=== PATIENT | female | born 1995 | race Hispanic/Latino ===

== ENCOUNTER 2018-12-14 18:00 | Inpatient (IN) ==
[2018-12-14] MEDS ORDERED: REGLAN PO ONE (18:25)
[2018-12-14] MEDS ORDERED: STADOL IV PRN (18:25)
[2018-12-14] MEDS ORDERED: PEPCID IV PRN (18:25)
[2018-12-14] MEDS ORDERED: ZOFRAN IV PRN (18:25)
[2018-12-14] MEDS ORDERED: PEPCID PO PRN (18:25)
[2018-12-14] MEDS ORDERED: TYLENOL PO PRN (18:25)
[2018-12-14] MEDS ORDERED: KEFZOL 1 GM/D5W 1 GM/50 ML IVPB IV PRN (18:25)
[2018-12-14] MEDS ORDERED: PEPCID PO ONE (18:25)
[2018-12-14] MEDS ORDERED: AMPICILLIN 2 GM/NS 2 GM/100 ML IVPB IV ONE (18:25)
[2018-12-14] MEDS ORDERED: SODIUM CHLORIDE 0.9% INJ SCH (18:30)
[2018-12-14] MEDS ORDERED: PITOCIN 30 UNITS/NS 30 UNIT/500 ML IV.SOLN IV SCH ×2 (18:30→20:00)
[2018-12-14] MEDS ORDERED: LR 1,000 ML IV SCH (18:30)
[2018-12-14 19:29] LABS: URINE SOURCE VOIDED
[2018-12-14 19:38] LABS: BILIRUBIN URINE NEGATIVE (NEGATIVE); GLUCOSE URINE NEGATIVE (NEGATIVE); KETONE URINE TRACE mg/dL (NEGATIVE)
[2018-12-14 19:39] LABS: BLOOD URINE NEGATIVE (NEGATIVE); CLARITY SL. CLOUDY (CLEAR); COLOR YELLOW; LEUKOCYTES URINE TRACE (NEGATIVE); NITRITE URINE NEGATIVE (NEGATIVE); PROTEIN URINE NEGATIVE (NEGATIVE); SP GRAVITY URINE 1.015; UROBILINOGEN URINE 1 mg/dL
[2018-12-14 19:51] LABS: BASO# 0.02 X1000 (0.0-0.2); BASO% 0.3 % (0.0-0.8); EOS# 0.09 X1000 (0.0-0.7); EOS% 1.2 % (0.0-10.0); HEMATOCRIT 35.3 % (37.0-47.0); HEMOGLOBIN 12.1 g/dL (12.0-16.0); IMM GRAN# 0.02 X1000 (0.0-0.04); IMM GRAN% 0.3 % (0.0-0.5); LYMPH# 1.42 X1000 (1.2-3.4); LYMPH% 18.9 % (20.5-51.1); MCH 29.4 PG (27-31); MCHC 34.3 g/dL (33-37); MCV 85.7 FL (81-99); MONO# 0.46 X1000 (0.11-0.59); MONO% 6.1 % (1.7-9.3); NEUT# 5.52 X1000 (1.4-6.5); NEUT% 73.2 % (42.2-75.2); PLT 287 X1000 (130-400); RBC 4.12 XMIL (4.2-5.4); RDW 12.7 % (11.5-14.5); WBC 7.53 X1000 (4.8-10.8)
[2018-12-14] MEDS ORDERED: M-M-R II VACCINE SUBQ ONE (19:55)
[2018-12-14] MEDS ORDERED: BENADRYL PO PRN (19:55)
[2018-12-14] MEDS ORDERED: ATARAX PO PRN (19:55)
[2018-12-14] MEDS ORDERED: PITOCIN IM PRN (19:55)
[2018-12-14] MEDS ORDERED: XYLOCAINE-MPF 1% INJ PRN (19:55)
[2018-12-14] MEDS ORDERED: HYDROXYZINE IM PRN (19:55)
[2018-12-14] MEDS ORDERED: BENADRYL IV PRN (19:55)
[2018-12-14] MEDS ORDERED: MINERAL OIL PO PRN (19:55)
[2018-12-14] MEDS ORDERED: PERI MEDS (DERMOPLAST/NUPERCAINAL/TUCKS) MISC PRN (19:55)
[2018-12-14] MEDS ORDERED: BOOSTRIX VACCINE IM ONE (19:55)
[2018-12-14] MEDS ORDERED: CYTOTEC PO PRN (19:55)
[2018-12-14] MEDS ORDERED: AMBIEN PO PRN (19:55)
[2018-12-14] MEDS ORDERED: PITOCIN 20 UNITS/NS 20 UNITS/1,000 ML IV.SOLN IV SCH (20:00)
[2018-12-14 20:29] LABS: RAPID HIV PRESUMPTIVE NEGATIVE; RPR NON-REACTIVE (NONREACTIVE)
[2018-12-14] MEDS ORDERED: PERICOLACE PO SCH (21:00)
[2018-12-14] MEDS ORDERED: AMPICILLIN 1 GM/NS 1 GM/50 ML IVPB IV SCH (22:30)
[2018-12-15] MEDS: MOTRIN PO PRN ×2 (00:36→11:45)
--- NOTE | 2018-12-15 02:20 | HISTORY AND PHYSICAL ---
HISTORY OF PRESENT ILLNESS: The patient is a 23-year-old G3, P2-0-0-2 who presents with no care at a gestational age of 36 weeks, based off of the last menstrual. The patient presents in active labor. Reports good movement, positive contractions. No leakage of fluid and denies vaginal bleeding. PAST MEDICAL HISTORY: None. PAST SURGICAL HISTORY: None. PAST OB HISTORY: G3, P2-0-0-2, two full-term vaginal deliveries. COMPANY LAB[employer] HISTORY: Menarche at age 12. She reports regular menstrual cycles. FAMILY HISTORY: None. SOCIAL HISTORY: Denies tobacco, alcohol, or drug use. MEDICATIONS: vitamins. ALLERGIES: No known drug allergies. REVIEW OF SYSTEMS: All systems reviewed and noncontributory. PHYSICAL EXAM: VITAL SIGNS: Stable and normal. HEENT: Pupils equal, round, reactive to light and accommodation. Extraocular movements intact. NECK: Supple. No thyromegaly. LUNGS: Clear to auscultation. HEART: Regular rate and rhythm. ABDOMEN: Gravid. Fundal height measuring roughly 37 cm. GENITOURINARY: Vaginal exam, 5 cm dilated, 100% effaced, -1 station. EXTREMITIES: Mild lower extremity edema. Negative calf tenderness. Electronic monitor: Category 1 tracing. TOCO monitore: contractions q.3 to 5 minutes. ASSESSMENT: The patient is a 23-year-old female, G3, P2-0-0-2 at approximately 36 weeks gestation, who presents with no care in active labor. PLAN: 1. Admit to Labor and delivery. 2. Estimated weight 6-1/2 pounds. 3. Anticipate vaginal delivery. 4. Obtain no care labs and routine labor labs. 5. Plan for ampicillin antibiotic for GBS unknown status. [facility]
--- NOTE | 2018-12-15 05:13 | OB/GYN PROGRESS NOTE ---
Progress Note OB - . Patient Problems: Current Active Problems Problem Status Onset Vaginal delivery Acute OB Progress Note: Vital Signs - 24 hr 12/15/18 00:30 12/15/18 04:27 Temperature 97.9 F 96.4 F L Pulse Rate 58 L 64 Respiratory Rate 18 18 Blood Pressure 91/53 92/50 O2 Sat by Pulse Oximetry 97 95 Laboratory Results - last 24 hr 12/14/18 12/14/18 12/14/18 18:30 19:44 19:44 WBC 7.53 RBC 4.12 L Hgb 12.1 Hct 35.3 L MCV 85.7 MCH 29.4 MCHC 34.3 RDW Std Deviation 12.7 Plt Count 287 MPV 10.0 Immature Gran % (Auto) 0.3 Neut % (Auto) 73.2 Lymph % (Auto) 18.9 L [place] % (Auto) 6.1 Eos % (Auto) 1.2 Baso % (Auto) 0.3 Immature Gran # (Auto) 0.02 Neut # (Auto) 5.52 Lymph # (Auto) 1.42 [place] # (Auto) 0.46 Eos # (Auto) 0.09 Baso # (Auto) 0.02 Glucose Urine Source VOIDED Urine Color YELLOW Urine Clarity SL. CLOUDY A Urine pH 7.0 Ur Specific [place] 1.015 Urine Protein NEGATIVE Urine Ketones TRACE Urine Blood NEGATIVE Urine Nitrite NEGATIVE Urine Bilirubin NEGATIVE Urine Urobilinogen 1 Urine WBC TRACE A Urine Glucose NEGATIVE RPR HIV 1&2 Antibody Rapid Blood Type O POSITIVE Antibody Screen NEGATIVE 12/14/18 12/14/18 19:44 19:44 WBC RBC Hgb Hct MCV MCH MCHC RDW Std Deviation Plt Count MPV Immature Gran % (Auto) Neut % (Auto) Lymph % (Auto) [place] % (Auto) Eos % (Auto) Baso % (Auto) Immature Gran # (Auto) Neut # (Auto) Lymph # (Auto) [place] # (Auto) Eos # (Auto) Baso # (Auto) Glucose 89 Urine Source Urine Color Urine Clarity Urine pH Ur Specific [place] Urine Protein Urine Ketones Urine Blood Urine Nitrite Urine Bilirubin Urine Urobilinogen Urine WBC Urine Glucose RPR NON-REACTIVE HIV 1&2 Antibody Rapid PRESUMPTIVE NEGATIVE Blood Type Antibody Screen HPI: Pt seen and examined. Currently w/o complaints. Pain well controlled. Ambulating and urinating w/o difficulty. Tolerating regular diet. Denies fever/chills/N/V. +bottle feeding, -breast feeding and decreased lochia. VS: please see above GEN: NAD CV: +S1S2 RESP: CTABL ABD: soft NTTP, FF at umbilicus EXT: neg CT Hgb 12.1 (12/14/18) A/P: 23yo PPD#1 s/p -post delivery H/H pending -OOB-->ambulation -Regular diet -con't routine PP care
--- NOTE | 2018-12-15 05:14 | OPERATIVE NOTE ---
PROCEDURE DATE: 12/14/2018 PROCEDURE: Vaginal delivery. The patient is a 23-year-old, G3, now P3-0-0-3, who delivered vaginally without epidural anesthesia. There was a nuchal cord identified x1 and reduced. The was placed on the patient's abdomen after delivery. The cord was clamped and cut. The placenta was delivered intact with normal 3 vessel cord. The fundus was firm with massage and IV Pitocin. There were no cervical, vaginal, or perineal lacerations. A male weighing at 6 pounds, 8 ounces, and scores of 9 and 10 at one and five minutes were noted. ESTIMATED BLOOD LOSS: Noted at 150 mL. Both mom and infant are recovering well.
[2018-12-15 06:46] LABS: BASO# 0.01 X1000 (0.0-0.2); BASO% 0.1 % (0.0-0.8); EOS# 0.04 X1000 (0.0-0.7); EOS% 0.4 % (0.0-10.0); HEMATOCRIT 32.9 % (37.0-47.0); HEMOGLOBIN 10.9 g/dL (12.0-16.0); IMM GRAN# 0.02 X1000 (0.0-0.04); IMM GRAN% 0.2 % (0.0-0.5); LYMPH# 2.17 X1000 (1.2-3.4); MCH 28.5 PG (27-31); MCHC 33.1 g/dL (33-37); MCV 86.1 FL (81-99); MONO% 7.4 % (1.7-9.3); MPV 9.5 FL (7.4-10.4); NEUT# 7.82 X1000 (1.4-6.5); NEUT% 71.9 % (42.2-75.2); PLT 262 X1000 (130-400); RBC 3.82 XMIL (4.2-5.4); RDW 12.7 % (11.5-14.5); WBC 10.86 X1000 (4.8-10.8)
[2018-12-15 10:36] LABS: RUBELLA SCREEN IMMUNE (IMMUNE)
[2018-12-15 19:00] LABS: HIV ANTIBODY SCREEN SEE COMMENTS
[2018-12-16] MEDS: MOTRIN PO PRN (07:57)
[2018-12-16 07:59] VITALS: BP 114/69
--- NOTE | 2018-12-16 10:12 | OB/GYN PROGRESS NOTE ---
Progress Note OB - . Patient Problems: Current Active Problems Problem Status Onset Vaginal delivery Acute OB Progress Note: Vital Signs - 24 hr 12/15/18 11:48 12/15/18 16:00 12/15/18 19:55 Temperature 98.0 F 96.9 F L 97.2 F L Pulse Rate 62 84 64 Respiratory Rate 18 18 16 Blood Pressure 106/60 100/62 103/56 O2 Sat by Pulse Oximetry 99 98 97 12/16/18 06:07 12/16/18 07:57 Temperature 97.2 F L 97.0 F L Pulse Rate 64 78 Respiratory Rate 16 18 Blood Pressure 104/55 114/69 O2 Sat by Pulse Oximetry 98 98 Laboratory Results - last 24 hr 12/14/18 12/14/18 19:44 20:29 HIV 1&2 Antibody Screen SEE COMMENTS Rubella Immunity Screen IMMUNE Laboratory Tests 12/14/18 12/14/18 12/14/18 18:30 19:44 19:44 WBC 7.53 RBC 4.12 L Hgb 12.1 Hct 35.3 L MCV 85.7 MCH 29.4 MCHC 34.3 RDW Std Deviation 12.7 Plt Count 287 MPV 10.0 Immature Gran % (Auto) 0.3 Neut % (Auto) 73.2 Lymph % (Auto) 18.9 L [place] % (Auto) 6.1 Eos % (Auto) 1.2 Baso % (Auto) 0.3 Immature Gran # (Auto) 0.02 Neut # (Auto) 5.52 Lymph # (Auto) 1.42 [place] # (Auto) 0.46 Eos # (Auto) 0.09 Baso # (Auto) 0.02 Glucose Urine Source VOIDED Urine Color YELLOW Urine Clarity SL. CLOUDY A Urine pH 7.0 Ur Specific [place] 1.015 Urine Protein NEGATIVE Urine Ketones TRACE Urine Blood NEGATIVE Urine Nitrite NEGATIVE Urine Bilirubin NEGATIVE Urine Urobilinogen 1 Urine WBC TRACE A Urine Glucose NEGATIVE RPR HIV 1&2 Antibody Screen HIV 1&2 Antibody Rapid Rubella Immunity Screen Blood Type O POSITIVE Antibody Screen NEGATIVE 12/14/18 12/14/18 12/14/18 19:44 19:44 20:29 WBC RBC Hgb Hct MCV MCH MCHC RDW Std Deviation Plt Count MPV Immature Gran % (Auto) Neut % (Auto) Lymph % (Auto) [place] % (Auto) Eos % (Auto) Baso % (Auto) Immature Gran # (Auto) Neut # (Auto) Lymph # (Auto) [place] # (Auto) Eos # (Auto) Baso # (Auto) Glucose 89 Urine Source Urine Color Urine Clarity Urine pH Ur Specific [place] Urine Protein Urine Ketones Urine Blood Urine Nitrite Urine Bilirubin Urine Urobilinogen Urine WBC Urine Glucose RPR NON-REACTIVE HIV 1&2 Antibody Screen SEE COMMENTS HIV 1&2 Antibody Rapid PRESUMPTIVE NEGATIVE Rubella Immunity Screen IMMUNE Blood Type Antibody Screen 12/15/18 06:18 WBC 10.86 H RBC 3.82 L Hgb 10.9 L Hct 32.9 L MCV 86.1 MCH 28.5 MCHC 33.1 RDW Std Deviation 12.7 Plt Count 262 MPV 9.5 Immature Gran % (Auto) 0.2 Neut % (Auto) 71.9 Lymph % (Auto) 20.0 L [place] % (Auto) 7.4 Eos % (Auto) 0.4 Baso % (Auto) 0.1 Immature Gran # (Auto) 0.02 Neut # (Auto) 7.82 H Lymph # (Auto) 2.17 [place] # (Auto) 0.80 H Eos # (Auto) 0.04 Baso # (Auto) 0.01 Glucose Urine Source Urine Color Urine Clarity Urine pH Ur Specific [place] Urine Protein Urine Ketones Urine Blood Urine Nitrite Urine Bilirubin Urine Urobilinogen Urine WBC Urine Glucose RPR HIV 1&2 Antibody Screen HIV 1&2 Antibody Rapid Rubella Immunity Screen Blood Type Antibody Screen 23 yo now [place] woman presenting in active labor with no prental care, now doing well via stock handler line discussion. She denies heavy vaginal bleeding, dysuria, unrelieved pain. She is comfortable with discharge home today. O: VSS above Hgb 10.9 EXAM NAD HEENT nL CVS RRR Chest Nl respiratory effort Fundus U-1, nontender Ext nontender, no edema A/P 36 week , No care Full discharge precautions, meds, limitations, 6 week or PRN return to office discussed through spanish interpreter/translator line.
[2018-12-16 10:47] LABS: HEPATITIS B SURFACE ANTIGEN SEE COMMENTS
--- NOTE | 2018-12-16 14:43 | DISCHARGE SUMMARY ---
ADMISSION DATE: 12/14/2018 DISCHARGE DATE: 12/16/2018 ADMITTING DIAGNOSIS: Estimated 36 week , active labor, absent care. DISCHARGE DIAGNOSES: 1. 36 week , delivered, with obstetric complication. 2. Absent care. 3. Language barrier, [facility] background. HISTORY OF PRESENT ILLNESS: This is a 23-year-old, 3, now para 3-0-0-3, [facility] female presenting in active labor with imminent delivery at approximately 36 weeks based on stated last menstrual period, with no care. Details of the past medical, social, and family histories and initial presentation are listed on the record. Laboratory returned with initial hemoglobin of 12.1, platelets 287, glucose 89, urinalysis clear, RPR nonreactive, HIV negative, rubella immune, and blood type O positive. Group B strep was not available. HOSPITAL COURSE: No progressed in spontaneous active labor and proceeded to an uncomplicated vaginal delivery of a healthy 6 pounds 8 ounce male over an intact perineum with estimated blood loss of 150 mL and scores of 9 and 10. A nuchal cord times 1 was reduced on the perineum prior to delivery. Her course has been unremarkable, hemoglobin 10.9. At this dictation, I have counseled her on discharge after performing a exam all through the interpreters phone line. She understands discharge precautions and early return to the office and in 6 weeks or sooner for heavy vaginal bleeding or fever or unrelieved pain for example. We discussed vitamins in the setting of breast feeding and mild anemia with hemoglobin 10.9 and early return for heavy bleeding, unrelieved pain, or fever. She is to return to the office for care in 6 weeks. [facility]
== END 2018-12-16 12:55 | disposition home or self-care (01) | DRG 807 ==
LOC: P.OPLD 18:00 → P.LD 18:19
PROVIDERS: ADMIT Obstetrics & Gynecology; ATTEND Obstetrics & Gynecology
CPT/HCPCS: 81003; 82947; 85025; 86592; 86701; 86703; 86762; 86850; 86900; 86901; 87340; 87389; 87390; 87491; 87591; A9270; J0290; J2590; J7120